=== PATIENT | male | born 1995 | race Caucasian/White ===

== ENCOUNTER 2018-02-04 10:01 | Emergency (ER) | payer BC ==
[2018-02-04 10:38] VITALS: RESP 20; TEMP 98.9
[2018-02-04] MEDS ORDERED: IBUPROFEN 600 MG TAB PO ONE (10:45)
[2018-02-04] MEDS ORDERED: IBUPROFEN 600 MG TAB ONE (10:49)
[2018-02-04 12:31] VITALS: BP 127/72; PULSE 69; O2SAT 99
== END 2018-02-04 11:44 | disposition home or self-care (01) ==
LOC: ED 10:01
DX: S63.502A Unspecified sprain of left wrist, initial encounter (principal); M79.1 Myalgia
CPT/HCPCS: 73130; 99282; A9270-GY